=== PATIENT | female | born 1990 | race Caucasian/White ===

== ENCOUNTER 2018-02-02 19:00 | Emergency (ER) | payer BC ==
[2018-02-02 19:05] VITALS: BP 141/93; BMI 25.7
--- NOTE | 2018-02-02 19:36 | RAD ---
Chest, AP Indication: Shortness of breath, dizziness, Caesarean January 27. Comparison: None Findings: The cardiac silhouette is unremarkable. The lungs are grossly clear without dense infiltrat es or significant pleural effusion. Impression: No acute chest process. Reported By:
--- NOTE | 2018-02-02 19:41 | DR.GENAD ---
HPI - PCP Primary Care Physician: [email or web address] - HPI Comment HPI Comment: SHE IS ONE WEEK POST DUE TO PRE-ECLASIA. STILL TAKEN MED FOR HYPERTENSION. TONIGHT EPISODE SHE PRESENTED WITH STARTED. BETTER AND RESOLVING. NO FEVER. NO URI SYMTOMS OR DYSURIA. NO DRAINAGE FRON WOUND. - Complaint/Symptoms Chief Complaint Doctors Comments: PATIENT SUDDENLY DEVELOP DIZZINESS, SOB, TACHYCARDIA AND LEFT SIDED WEAKNESS AT HOME TONIGHT. Chief Complaint:: pt post op pt c/o being sob having dizziness and lt sided weakness - Nurses notes reviewed Nurses Notes Review: Yes - Source History Provided: Patient - Mode of Arrival Mode of Arrival: EMS - Timing Onset of Chief Complaint: 02/02/18 Came on: Suddenly - Duration Duration: Intermittent Duration: Hours - Severity Severity: Moderate PMH - PMH Past Medical History: No Past Surgical History: Yes Surgical History: - Family History History of Family Medical Conditions: No - Social History Does any household member use tobacco: No Alcohol Use: None Do you use any recreational Drugs:: No Lives With: Family Lives Where: Home - infectious screening In the last 2 months have you had wt loss of >10#?: NO Have you had fever, night sweats or hemotysis?: No Have you traveled outside the country in the last 6 months?: No Isolation: Standard ROS - Review of Systems Constitutional: No Symptoms Reported, Weakness Eyes: No Symptoms Reported. negative: Eye Pain, Discharge ENTM: No Symptoms Reported. negative: Ear Pain, Nose Discharge, Nose Congestion , Throat Pain Respiratoy: Short of Breath. negative: Productive Cough, Non-Productive Cough, Wheezing, Hemoptysis Cardiovascular: Palpitations Gastrointestinal/Abdominal: Other (POST ). negative: Abdominal Pain, Diarrhea, Nausea, Vomiting Genitourinary: negative: Dysuria, Frequency, Hematuria Neurological: Dizziness, Other (LEFT SIDED WEAKNESS/RESOLVE) Musculoskeletal: Other (LEFT SIDE WEAKNESS.) Integumentary: No Symptoms Reported Hematologic/Lymphatic: No Symptoms Reported Endocrine: No Symptoms Reported All Other Systems: Reviewed and Negative PE - Vital Signs Vitals: Temperature 98.6 F Pulse Rate 95 Respiratory Rate 18 Blood Pressure 141/93 O2 Sat by Pulse Oximetry 100 - General Limitations: No Limitations General Appearance: Alert - Head Head Exam: Normal Inspection - Eyes Eye exam: Normal Appearance - ENT ENT Exam: Normal External Ear Exam External Ear Exam: Normal External Inspection TM/Canal Exam: Bilateral Normal Nose Exam: Normal Nose Exam Mouth Exam: Normal Inspection Throat Exam: Normal Inspection - Neck Neck Exam: Trachea Midline - Chest Chest Inspection: Symmetric Chest Wall Rise - Respiratory Respiratory Exam: Normal Lung Sounds Bilat Respiratory Exam: Bilateral Clear to Auscultation - Cardiovascular Cardiovascular Exam: Regular Rate, Normal Rhythm, Normal Heart Sounds - Abdominal Exam Abdominal Exam: Normal Bowel Sounds, Soft. negative: Tenderness - Extremities Extremities Exam: Normal Inspection - Back Back Exam: Normal Inspection - Neurologic Neurological Exam: Alert, Oriented X3, CN II-XII Intact, Normal Gait, Reflexes Normal. negative: Motor Sensory Deficit - Psychiatric Psychiatric Exam: Normal Affect - Skin Skin Exam: Normal Color MDM - Additional Information Additional Information Obtained From: Family - Differential Diagnosis Differential Diagnosis: TIA, PE, CVA, DIZZINESS, LEFT SIDED WEAKNESS Course - Treatment Treatment: SEE ORDERS. PATIENTS SYMTOMS HAVE RESOLVE SPONTANOUSLY WHILE IN ED. - Education/Counseling Education/Counseling: Patient, Education Educated On: Diagnosis, Needs for Follow Up ROR - Labs Reviewed Laboratory Results Reviewed?: Yes Result Diagrams: 02/02/18 19:32 02/02/18 19:32 Laboratory: WBC 14.2 X10^3/uL (3.6-10.0) H 02/02/18 19:32 RBC 3.85 X10^6/uL (3.5-5.4) 02/02/18 19:32 Hgb 10.5 g/dL (12.0-16.0) L 02/02/18 19:32 Hct 31.6 % (36.0-47.0) L 02/02/18 19:32 MCV 82.1 fL (80.0-100.0) 02/02/18 19:32 MCH 27.2 pg (27.0-34.0) 02/02/18 19:32 MCHC 33.1 g/dL (33.0-35.0) 02/02/18 19:32 RDW 17.1 % (11.6-16.5) H 02/02/18 19:32 Plt Count 271 X10^3/uL (150.0-450.0) 02/02/18 19:32 MPV 8.4 fL (7.4-11.0) 02/02/18 19:32 Neut % (Auto) 69.8 % (42.0-75.0) 02/02/18 19:32 Lymph % (Auto) 20.2 % (21.0-51.0) L 02/02/18 19:32 Baxter % (Auto) 6.4 % (0.0-13.0) 02/02/18 19:32 Eos % (Auto) 2.9 % (0.9-2.9) 02/02/18 19:32 Baso % (Auto) 0.7 % (0.2-1.0) 02/02/18 19:32 Neut # (Auto) 9.9 x10^3/uL (2.2-4.8) H 02/02/18 19:32 Lymph # (Auto) 2.9 X10^3/uL (1.3-2.9) 02/02/18 19:32 Baxter # (Auto) 0.9 x10^3/uL (0.3-0.8) H 02/02/18 19:32 Eos # (Auto) 0.4 x10^3/uL (0.0-0.2) H 02/02/18 19:32 Baso # (Auto) 0.1 X10^3/uL (0.0-0.1) 02/02/18 19:32 Absolute Nucleated RBC 0.0 /100WBC 02/02/18 19:32 D-Dimer > 5000 ng/mL (0-400) H* 02/02/18 19:32 Sodium 139 mmol/L (136-145) 02/02/18 19:32 Corrected Sodium TNP 02/02/18 19:32 Potassium 4.1 mmol/L (3.5-5.1) 02/02/18 19:32 Chloride 104 mmol/L (98-107) 02/02/18 19:32 Carbon Dioxide 25.5 mmol/L (21-32) 02/02/18 19:32 BUN 15 mg/dL (7-18) 02/02/18 19:32 Creatinine 0.73 mg/dL (0.55-1.02) 02/02/18 19:32 Est GFR (MDRD) Af Amer > 60 (>60) 02/02/18 19:32 Est GFR (MDRD) Non-Af > 60 (>60) 02/02/18 19:32 Glucose 101 mg/dL (65-99) H 02/02/18 19:32 Calcium 8.8 mg/dL (8.5-10.1) 02/02/18 19:32 Corrected Calcium 9.6 mg/dL (8.5-10.1) 02/02/18 19:32 Total Bilirubin 0.20 mg/dL (0.2-1.0) 02/02/18 19:32 AST 33 Units/L (15-37) 02/02/18 19:32 ALT 64 Units/L (12-78) 02/02/18 19:32 Alkaline Phosphatase 131 Units/L (46-116) H 02/02/18 19:32 Creatine Kinase 77 Units/L (26-192) 02/02/18 19:32 CK-MB (CK-2) < 1.0 ng/mL (0-4.0) 02/02/18 19:32 CK/CKMB % Calc 1.3 % (<4) 02/02/18 19:32 Troponin I < 0.02 ng/mL (0-1.5) 02/02/18 19:32 Total Protein 7.7 g/dL (6.4-8.2) 02/02/18 19:32 Albumin 3.0 g/dL (3.4-5.0) L 02/02/18 19:32 Globulin 4.7 g/dL (2.5-4.5) H 02/02/18 19:32 Albumin/Globulin Ratio 0.6 Ratio (1.1-2.1) L 02/02/18 19:32 - XRAY XRAY Interpreted by: Radiologist XRAY Findings: REPORT DISCUSS WITH PATIENT. - EKG Rhythm: NSR (EKG NOTED) - Diagnosis Discharge Problem: Dizziness, Left-sided weakness - Discharge Plan Condition: Stable - Follow ups/Referrals Follow ups/Referrals: [facility],None [Primary Care Provider] - 02/03/18 - Instructions Instructions: Weakness, [id number], Dizziness, [id number] Additional Instructions: RETURN TO ED IF WORSE. YOUR SYMTOMS CURRENTLY RESOLVE. YOU WILL STILL NEED TO FOLLOW UP WITH PCP IN AM.
[2018-02-02 19:43] LABS: BASOPHILS # (AUTO) 0.1 X10^3/uL (0.0-0.1); BASOPHILS % (AUTO) 0.7 % (0.2-1.0); EOSINOPHILS # (AUTO) 0.4 x10^3/uL (0.0-0.2); EOSINOPHILS % (AUTO) 2.9 % (0.9-2.9); HEMATOCRIT 31.6 % (36.0-47.0); HEMOGLOBIN 10.5 g/dL (12.0-16.0); LYMPHOCYTES # (AUTO) 2.9 X10^3/uL (1.3-2.9); LYMPHOCYTES % (AUTO) 20.2 % (21.0-51.0); MEAN CORPUSCULAR HEMOGLOBIN 27.2 pg (27.0-34.0); MEAN CORPUSCULAR HGB CONC 33.1 g/dL (33.0-35.0); MEAN CORPUSCULAR VOLUME 82.1 fL (80.0-100.0); MEAN PLATELET VOLUME 8.4 fL (7.4-11.0); MONOCYTES # (AUTO) 0.9 x10^3/uL (0.3-0.8); MONOCYTES % (AUTO) 6.4 % (0.0-13.0); NEUTROPHILS # (AUTO) 9.9 x10^3/uL (2.2-4.8); NEUTROPHILS % (AUTO) 69.8 % (42.0-75.0); PLATELET COUNT 271 X10^3/uL (150.0-450.0); RED BLOOD COUNT 3.85 X10^6/uL (3.5-5.4); RED CELL DISTRIBUTION WIDTH 17.1 % (11.6-16.5); WHITE BLOOD COUNT 14.2 X10^3/uL (3.6-10.0)
[2018-02-02 19:53] LABS: ALANINE AMINOTRANSFERASE 64 Units/L (12-78); ALKALINE PHOSPHATASE 131 Units/L (46-116); ASPARTATE AMINO TRANSFERASE 33 Units/L (15-37); BLOOD UREA NITROGEN 15 mg/dL (7-18); CALCIUM 8.8 mg/dL (8.5-10.1); CARBON DIOXIDE 25.5 mmol/L (21-32); CHLORIDE 104 mmol/L (98-107); COR CA(FOR HYPOALB) 9.6 mg/dL (8.5-10.1); CREATININE 0.73 mg/dL (0.55-1.02); SODIUM 139 mmol/L (136-145); TOTAL PROTEIN 7.7 g/dL (6.4-8.2); eGFR BLACK RACES > 60 (>60); eGFR NON BLACK RACES > 60 (>60)
[2018-02-02 20:12] LABS: CKMB % 1.3 % (<4); CREATINE KINASE 77 Units/L (26-192); CREATINE KINASE MB < 1.0 ng/mL (0-4.0); TROPONIN I < 0.02 ng/mL (0-1.5)
[2018-02-02] MEDS ORDERED: NS 100 ML IV 100 ML IV ONE (20:18)
--- NOTE | 2018-02-02 20:49 | CT ---
HISTORY: Dizziness and left-sided weakness, status post section Study: CT brain without contrast Comparison: None Technique: Multiple axial images of the brain were obtained from the skull base to the vertex without administra tion of IV contrast. Findings: No acute intraparenchymal hemorrhage or mass can be identified. No extra-axial fluid collections are seen. No alteration in the attenuation of the brain parenchyma can be identified to suggest acute o r subacute ischemic change. The ventricular system is symmetric and nondilated. The extracranial st ructures are grossly unremarkable. IMPRESSION: 1. No acute intracranial process can be identified. Reported By:
--- NOTE | 2018-02-02 20:51 | CT ---
CTA chest Indication: Shortness of breath, left-sided weakness, elevated D-dimer. Recent . Comparison: None Technique: CT images of the chest were obtained with contrast. Automatic exposure control was utilize d. MIP images provided. Findings: The upper abdomen is grossly unremarkable. No acute osseous abnormality. The heart size is normal, without pericardial thickening or pericardial effusion. No suspicious intra thoracic lymph nodes. The thoracic aorta is grossly normal for technique. Evaluation of the smaller s egmental pulmonary arteries is limited by suboptimal contrast bolus timing. Accounting for this, no P TE is identified. The lungs are clear. No pleural effusion or pneumothorax. The major airways are pat ent. Impression: No evidence for PTE. No acute chest process. Reported By:
== END 2018-02-02 21:15 | disposition home or self-care (01) ==
LOC: ER 19:10
DX: R06.02 Shortness of breath (principal); R53.1 Weakness
CPT/HCPCS: 36415; 70450; 71045; 71275; 80053; 82550; 82553; 84484; 85025; 85378; 93005; 93010; 99283